=== PATIENT | female | born 1990 | race Caucasian/White ===

== ENCOUNTER 2017-12-24 22:31 | Emergency (ER) | payer MEDICAID, SELFPAY ==
[2017-12-24 22:33] VITALS: BP 121/65; PULSE 101; RESP 18; TEMP 37.4; O2SAT 94; BMI 34.0
--- NOTE | 2017-12-24 23:54 | ED.DCSUM_ITS ---
- ER Visit Summary Date of Service: 12/24/17 Chief Complaint: [] Nausea and vomiting History of Present Illness: The patient is a 27 F [] presents with nausea and vomiting since earlier today. She has had 4 episodes of vomiting since this morning. No diarrhea. No significant abdominal pain. She is TheraFlu. No recent antibiotics. No respiratory symptoms. She does have sick contacts. Physical Examination: [] Vital signs reviewed General: Well-nourished well-developed Head: Normocephalic atraumatic Eyes: Pupils equal round and reactive to light extraocular movements intact ENT: TMs clear no hemotympanum no trauma Neck: Nontender full range of motion Cardiovascular: Regular rate rhythm no murmurs normal S1-S2 Respiratory: No distress clear to auscultation bilaterally chest nontender Abdomen: Soft nontender nondistended normal bowel sounds no masses Back: Nontender no CVA tenderness Extremities: Nontender active range of motion ?4 extremities no trauma Skin: Normal color no trauma Neuro alert oriented cranial nerves II through XII intact normal strength sensation reflexes Test Results: [] Emergency Department Course and Treatment: [] Patient given a dose of Zofran. I think she likely has stomach flu versus food poisoning. No significant diarrhea however. She will use Zofran at home and follow-up as an outpatient return if she worsens. She is nontoxic. No fever. I feel she does not need lab work or imaging. Treatment Plan: [] Disposition: [] Impression: [] Nausea and vomiting This note was generated with [employer] dictation software. It may contain incorrect words, spelling, and punctuation that were not noted in review of the chart prior to signing ED Disposition - Plan for ED Patient: Chief Complaint: Nausea/Vomiting Referrals: Barry Patrick MD [Primary Care Provider] -
--- NOTE | 2017-12-24 23:54 | ED.DEP ---
ED Disposition - Plan for ED Patient: Disposition: Home or Assisted Living Chief Complaint: Nausea/Vomiting Instructions: ED Nausea Vomiting Prescriptions: Ondansetron [Zofran Odt] 8 mg PO Q8H PRN PRN #10 tab PRN Reason: Nausea Referrals: Barry Patrick MD [Primary Care Provider] -
--- NOTE | 2017-12-24 23:57 | ED.DEP ---
ED Disposition - Plan for ED Patient: Chief Complaint: Nausea/Vomiting Instructions: ED Nausea Vomiting Prescriptions: Ondansetron [Zofran Odt] 8 mg PO Q8H PRN PRN #10 tab PRN Reason: Nausea Referrals: Barry Patrick MD [Primary Care Provider] -
[2017-12-25] MEDS: Ibuprofen 600 MG Tablet PO (00:11)
[2017-12-25] MEDS: Ondansetron ODT 4 MG Tablet PO (00:11)
== END 2017-12-25 00:13 | disposition home or self-care (01) ==
PROVIDERS: Emergency Provider Emergency Medicine; Family Provider Family Medicine; PCP Family Medicine
DX: R11.2 Nausea with vomiting, unspecified (principal); E66.9 Obesity, unspecified; Z68.34 Body mass index [BMI] 34.0-34.9, adult
CPT/HCPCS: 99283

== ENCOUNTER 2019-04-05 19:44 | Emergency (ER) | payer MEDICAID, SELFPAY ==
[2019-04-05 19:46] VITALS: BP 117/71; PULSE 69; PULSE 82; RESP 14; TEMP 36.7; O2SAT 96; BMI 37.5
--- NOTE | 2019-04-05 20:17 | EKG12_ITS ---
Test Reason : DIZZINESS Blood Pressure : / mmHG Vent. Rate : 065 BPM Atrial Rate : 065 BPM P-R Int : 152 ms QRS Dur : 092 ms QT Int : 384 ms P-R-T Axes : 041 025 047 degrees QTc Int : 399 ms Normal sinus rhythm Normal ECG Confirmed by DIVYA GREGORY MD ([id number]), industrial editor DA NGUYEN ([id number]) on 04/08/2019 2:02:17 PM Referred By: ARISTEO Confirmed By:DIVYA GREGORY MD
--- NOTE | 2019-04-05 20:55 | RAD_ITS ---
STUDY: X-RAY CHEST REASON FOR EXAM: Female, 28 years old. Dizziness. Syncope. TECHNIQUE: PA and lateral views of the chest. COMPARISON: February 19, 2010. FINDINGS: Cardiac silhouette unremarkable. Pulmonary vascularity unremarkable. Aorta unremarkable. No focal patchy airspace opacities. No pleural effusions. Upper abdomen unremarkable. Osseous structures intact. No pneumothorax. RAD/Chest PA and Lateral IMPRESSION: No acute cardiopulmonary findings Electronically Signed: Bentley Rosario DO at 21:06 EDT Tel , Service support ,
[2019-04-05 20:58] LABS: Absolute Neutrophil Count 3.7 X10^3/uL (2.0-7.7); Basophil# 0.03 X10^3/uL; Basophil% 0.5 % (0-1); Eosinophil# 0.17 X10^3/uL; Eosinophils% 2.6 % (0-5); Hematocrit 40.5 % (37-47); Hemoglobin 13.9 g/dl (12.0-15.0); Mean Corp Hgb Conc 34.3 g/gl (32-36); Mean Corpuscular Hgb 28.2 pg (27.0-32.0); Mean Corpuscular Volume 82.2 fL (81-99); Mean Platelet Vol. 9.7 fl (6.2-12.0); Monocyte# 0.36 X10^3/uL; Monocyte% 5.5 % (0-10); Neutrophil # 3.69 X10^3/uL (2.7-7.7); Neutrophil % 56.1 % (47-70); Platelet Count 275 K/mm3 (150-450); RBC Distribution Width CV 12.6 % (11.6-14.6); RBC Distribution Width SD 37.3 fl (35.1-43.9); Red Blood Count 4.93 M/mm3 (4.2-5.4); White Blood Count 6.6 K/mm3 (4.4-11.0)
[2019-04-05 20:59] LABS: POSITIVE COUNT NO; POSITIVE DIFFERENTIAL NO; POSITIVE MORPHOLOGY NO
[2019-04-05 21:45] VITALS: BP 134/71; PULSE 60; RESP 15; O2SAT 99
[2019-04-05 21:51] LABS: AST(SGOT) 26 U/L (15-37); Alanine Aminotransfer ALT/SGPT 47 U/L (13-56); Albumin, Serum 3.9 g/dL (3.2-5.0); Alkaline Phosphatase 98 U/L (45-117); Anion Gap 6 (5-15); BUN 11 mg/dL (7-18); BUN/Creat Ratio 13.7 RATIO (10-20); Bilirubin, Direct < 0.05 mg/dL (0.00-0.30); Chloride 107 mmol/L (98-107); EST Glomerular Filtration Rate 91 mL/min (>60); Est Glom Filt Rate - Afr Amer 110 mL/min (>60); Estimated Creatinine Clearance 98.88 ml/min; Globulin 3.5 g/dL (2.2-4.2); Glucose 104 mg/dL (74-106); Magnesium 1.9 mg/dL (1.6-2.6); Potassium 3.9 mmol/L (3.5-5.1); Protein, Total 7.4 g/dL (6.4-8.2); Sodium Level 138 mmol/L (136-145); Thyroid Stim Hormone (TSH) 1.66 uIU/mL (0.358-3.74)
[2019-04-05 22:00] LABS: Internal QC Validated? YES +Cl - CLEAR BKGD; Pregnancy, Serum, hCG Quali. NEGATIVE Negative
[2019-04-05] MEDS: Acetaminophen 500 MG Tablet 1000 MG PO (22:02)
--- NOTE | 2019-04-05 22:22 | ED.VISSUMM ---
- ER Visit Summary Date of Service: 04/05/19 Chief Complaint: Weak and dizzy History of Present Illness: The patient is a 28 F states for about a week now she has been feeling disorientated and somewhat forgetful. She notes she is been intermittently dizzy. She states she has been sleeping okay but not as much as I would like to get. She states she has not gained or lost any weight. She notes some nausea. She notes intermittent palpitations. She states that she has had these symptoms before and is not been able to find a cause for it. She is tried to decrease her smoking. She states she is try to cut out caffeine. She reports increasing her exercise. Previous history includes an SVT with questionable cardiac ablation. Questionable because she cannot tell me exactly what happened. Neither can mom. Physical Examination: Afebrile vital signs stable Gen: Well-nourished well-developed obese Head: Normocephalic atraumatic Eyes: Perrl EOMI ENT: TMs clear no rhinorrhea moist mucous membranes Neck: Supple no lymphadenopathy no JVD nontender CVS: Regular rate rhythm no murmurs normal S1-S2 Respiratory: No distress clear to auscultation bilaterally chest nontender Abdomen: Soft nontender nondistended normal bowel sounds no masses Back: Nontender Extremity: Nontender no edema Skin: Normal color no rash Neuro: alert orientated ?3 CN II-XII intact normal strength sensation Psych: Normal affect normal mood Test Results: EKG shows a sinus rhythm with a rate of 65. Chest x-ray showed normal mediastinal silhouette. CBC CMP are normal. Patency test negative. TSH is normal at 1.66. Emergency Department Course and Treatment: She received Tylenol for headache. At this point I do not see an obvious cause for the patient's symptoms but more importantly I do not see an emergent cause. Patient was encouraged to follow-up with her primary care if symptoms persist. Impression: 1. Weakness 2. Dizziness This note was generated with [employer] dictation software. It may contain incorrect words, spelling, and punctuation that were not noted in review of the chart prior to signing ED Disposition - Plan for ED Patient: Disposition: Home or Assisted Living Instructions: DIZZINESS, Unk Cause, WEAKNESS, Unk Cause Referrals: Barry Patrick MD [Primary Care Provider] - 3-5 Days
[2019-04-05 22:30] VITALS: BP 134/71; PULSE 60; RESP 15; O2SAT 98
== END 2019-04-05 22:31 | disposition home or self-care (01) ==
PROVIDERS: Emergency Provider Emergency Medicine; Family Provider Family Medicine; PCP Family Medicine
DX: R53.1 Weakness (principal); R42 Dizziness and giddiness; R11.0 Nausea; R00.2 Palpitations; R51 Headache; E66.9 Obesity, unspecified; Z86.79 Personal history of other diseases of the circulatory system; Z72.0 Tobacco use
CPT/HCPCS: 71046; 80048; 80076; 83735; 84443; 84703; 85025; 93005; 99283; A4216